=== PATIENT | female | born 1955 | race Caucasian/White ===

== ENCOUNTER 2017-02-27 14:06 | Emergency (ER) | payer OTHER ==
[~2017-02-27] VITALS: Ht 160 cm; Wt 73.0 kg
[2017-02-27 14:28] VITALS: Ht 160 cm; Wt 73.0 kg
[2017-02-27] MEDS ORDERED: SOD CHLORIDE 0.9% 1,000 ML IV STA (20:06)
--- NOTE | 2017-02-27 20:11 | ERD ---
ER Documentation Chief Complaint Date/Time DATE: 02/27/17 TIME: 20:10 Chief Complaint abd pain , headcahe x 6 months HPI 61-year-old female with a history of diabetes and hyperlipidemia, status post remote cholecystectomy ambulatory to the ED complaining of a six-month history of worsening, moderate, generalized, vague, abdominal pains localized to the epigastrium. No nausea, vomiting, diarrhea or constipation. No hematemesis, hematochezia or melanotic stools. No chest pain or palpitations per denies shortness of breath or cough. No dysuria, polyuria, hematuria or flank pain. No vaginal discharge or bleeding. No relieving or exacerbating factors. She is very concerned as she has a strong family history of cancer. She also been having mild, generalized, intermittent headaches recently but no visual changes , focal weakness or numbness. No neck or back pain. No fevers or chills. ROS All systems reviewed and are negative except as per history of present illness. Medications Home Meds Active Scripts Pantoprazole (Protonix) 40 Mg Tabec, 40 MG PO DAILY for 14 Days, TAB Prov:ROSALVA SALEH MD 02/27/17 Reported Medications Omeprazole* (Omeprazole*) Unknown Strength Capsule.dr, MG PO DAILY, #30 CAP 02/27/17 Insulin Isophan/Regular (Humulin 70/30) 100 Units/Ml Susp, 0 SC AC BREAKFAST DINNER, EA 50 UNITS QAM AND 38 UNITS QPM 02/27/17 Atorvastatin Calcium* (Atorvastatin Calcium*) Unknown Strength Tablet, MG PO QAM , #30 TAB 02/27/17 Metformin* (Glucophage*) Unknown Strength Tab, MG PO WITH LUNCH DINNER, #60 TAB 02/27/17 Allergies Allergies: Coded Allergies: No Known Allergy (Unverified , 02/27/17) PMhx/Soc Reviewed in chart. As per HPI. History of Surgery: Yes (Cholecystectomy) Anesthesia Reaction: No Hx Neurological Disorder: No Hx Respiratory Disorders: No Hx Cardiac Disorders: Yes (Hypertension) Hx Psychiatric Problems: No Hx Miscellaneous Medical Probl: Yes (Diabetes mellitus) Hx Alcohol Use: No Hx Substance Use: No Hx Tobacco Use: No FmHx Mother and sister both had hepatic cancer. No family history of stroke or coronary artery disease Physical Exam Vitals Vital Signs Date Time Temp Pulse Resp B/P Pulse Ox O2 Delivery O2 Flow Rate FiO2 02/27/17 23:43 97.9 69 18 151/69 96 Room Air 02/27/17 19:52 98.4 72 18 136/65 95 Room Air 02/27/17 14:28 97.9 80 18 138/67 98 Physical Exam Const: Alert, anxious, moderate distress Head: Atraumatic Eyes: Normal Conjunctiva ENT: Normal External Ears, Nose and Mouth. Neck: Full range of motion. Nontender Resp: Breath sounds are equal and clear to auscultation bilaterally Cardio: Regular rate and rhythm, no murmurs Abd: Soft, nondistended. Epigastric tenderness but no rebound or guarding. Normal bowel sounds. No masses or abnormal pulsations. Skin: No petechiae or rashes Back: No midline or flank tenderness Ext: No cyanosis, or edema Neur: Awake and alert. No focal deficit observed Psych: Patient appears anxious but not depressed. Result Diagram: 02/27/17201502/27/172015 Results 24 hrs Laboratory Tests Test 02/27/17 20:16 02/27/17 23:22 White Blood Count 10.810^3/ul Red Blood Count 4.3510^6/ul Hemoglobin 13.7g/dl Hematocrit 40.4% Mean Corpuscular Volume 92.9fl Mean Corpuscular Hemoglobin 31.5pg Mean Corpuscular Hemoglobin Concent 33.9g/dl Red Cell Distribution Width 13.7% Platelet Count 19648^3/UL Mean Platelet Volume 9.5fl Neutrophils % 60.1% Lymphocytes % 27.8% Monocytes % 6.5% Eosinophils % 4.7% Basophils % 0.6% Nucleated Red Blood Cells % 0.0/100WBC Neutrophils # 6.510^3/ul Lymphocytes # 3.010^3/ul Monocytes # 0.710^3/ul Eosinophils # 0.510^3/ul Basophils # 0.110^3/ul Nucleated Red Blood Cells # 0.010^3/ul Urine Color LT. YELLOW Urine Clarity CLEAR Urine pH 5.0 Urine Specific [place] 1.025 Urine Ketones NEGATIVE Urine Nitrite NEGATIVE Urine Bilirubin NEGATIVE Urine Urobilinogen 0.2 E.U./dL Urine Leukocyte Esterase TRACE Urine Microscopic RBC 0-2/HPF Urine Microscopic WBC 0-2/HPF Urine Squamous Epithelial Cells FEW Urine Hemoglobin NEGATIVE Urine Glucose 0.5%% Urine Total Protein NEGATIVE Sodium Level 136mmol/L Potassium Level 4.6mmol/L Chloride Level 97mmol/L Carbon Dioxide Level 26mmol/L Anion Gap 18 Blood Urea Nitrogen 16mg/dl Creatinine 0.77mg/dl Glucose Level 355mg/dl Calcium Level 9.5mg/dl Total Bilirubin 0.3mg/dl Direct Bilirubin 0.00mg/dl Indirect Bilirubin 0.3mg/dl Aspartate Amino Transf (AST/SGOT) 58IU/L Alanine Aminotransferase (ALT/SGPT) 63IU/L Alkaline Phosphatase 122IU/L Total Protein 7.6g/dl Albumin 4.1g/dl Globulin 3.50g/dl Albumin/Globulin Ratio 1.17 Lipase 122U/L Bedside Glucose 223mg/dL Current Medications Medications (Trade) Dose Ordered Sig/Alis Route PRN Reason Start Time Stop Time Status Last Admin Dose Admin Sodium Chloride (NS) 1,000 ml @ 1,000 mls/hr Q1H STAT IV 02/27/17 20:06 02/27/17 21:05 DC 02/27/17 20:19 Pantoprazole (Protonix Iv) 40 mg ONCE ONCE IV 02/27/17 20:30 02/27/17 20:31 DC 02/27/17 20:19 EKG: Sinus rhythm. Ventricular rate: 68. Normal VA and QRS. Q waves in leads III and aVF with poor R-wave progression in anterior leads. No acute ST segment elevation or depression. No ectopy. EP interpretation: Abnormal ECG. IMAGING: PROCEDURE: CT Abdomen and pelvis with contrast. CLINICAL INDICATION: Abdominal pain. TECHNIQUE: CT scan of the abdomen and pelvis with contrast was performed on a multi-detector high-resolution CT scanner. The patient was scanned following the uncomplicated administration of 100 cc of Omnipaque 300 intravenous contrast. Coronal and sagittal reformatted images were obtained from the axial source images. Images were reviewed on a high-resolution PACS workstation. One or more of the following dose reduction techniques were used: - Automated exposure control. - Adjustment of the mA and/or kV according to patient size. - Use of iterative reconstruction technique. Exam CTD/vol = 13.36 mGy. Total exam DLP = 783.01 mGy-cm. COMPARISON: None. FINDINGS: Evaluation of the lung bases demonstrates mild bibasilar atelectasis. Abdomen: The liver is normal in size with no focal mass identified. The patient status post cholecystectomy with mild pneumobilia present. The spleen, pancreas and bilateral adrenal glands are within normal limits. Bilateral kidneys are normal in size with symmetric enhancement. There is no focal mass, hydronephrosis or hydroureter. There is no retroperitoneal adenopathy. The abdominal aorta is of normal caliber with scattered atherosclerotic calcifications. There is no abnormal bowel wall thickening or distension. There is no bowel obstruction or free air. A normal appendix is identified. There is no diverticulosis or diverticulitis. There is no ascites. Pelvis: The bladder is unremarkable. The uterus and adnexa are within normal limits. There is no significant pelvic adenopathy or free fluid. Evaluation of the osseous structures demonstrates no suspicious lytic or blastic lesion. IMPRESSION: Status post cholecystectomy with mild pneumobilia. Vascular calcifications reflective of atherosclerosis. Mild bibasilar atelectasis. Otherwise no acute abnormality identified within the abdomen and pelvis. .Alfonso Bedolla MD, MD Date Time Electronically viewed and signed by .Alfonso Bedolla MD, MD on 02/27/2017 22:12 .T/ Procedures/MDM DOCUMENTS REVIEWED: ED nurse, no prior records available. REEXAMINATION/REEVALUATION: Time: 23:20. Abdomen soft nontender. Accu-Chek 223 mg/dL. Abdomen soft nontender. No rebound or guarding. MEDICAL DECISION MAKIN-year-old female with a history of diabetes and hyperlipidemia, status post remote cholecystectomy ambulatory to the ED complaining of a six-month history of worsening, moderate, generalized, vague, abdominal pains localized to the epigastrium. CT scan of the abdomen is unremarkable for acute pathology. Possible gastritis/GERD. Symptoms are consistent with mesenteric ischemia. An occult malignancy has not ruled out and patient will need further GI consultation and endoscopy. Abdominal exam is benign without significant tenderness, rebound, guarding or other signs of peritonitis. No ischemic EKG changes, elevated troponin or other signs of acute coronary syndrome. Diabetic hyperglycemia without evidence of DKA or HONK. In the absence of signs of serious disease she is stable for discharge with precautionary instructions, PPIs and outpatient follow-up was counseled. Counseled patient regarding diagnostic workup, diagnosis and need for followup. Understands definitive diagnosis not established, mandatory followup and to return to ED if symptoms recur, worsen or any other concerns. OBSERVATION NOTE: At 19:00 the patient was entered into observation status to establish the need for admission. During this time the patient was treated for abdominal pain. Additionally, extensive evaluation including, CBC, Chemistry, Urinalysis, EKG, and CAT scan of the abdomen and pelvis were preformed and results interpreted as above. Vitals signs were monitored and repeat exams were performed every 15-20 minutes. At 23:20 the patient was reexamined; VSS, afebrile, pain resolved and tolerating PO's. Based on these findings the patient was discharged from observation period as it was determined that the patient was improved and met criteria for discharge. Departure Diagnosis: Primary Impression: Abdominal pain of unknown etiology Additional Impression: Hyperglycemia due to type 2 diabetes mellitus Diabetes mellitus termite control servicer insulin use: with termite control servicer use Qualified Code: E11.65 - Type 2 diabetes mellitus with hyperglycemia, with long-term current use of insulin Condition: Stable (Improved) ROSALVA SALEH MD February 27, 2017 20:11
[2017-02-27 20:28] LABS: ADD SCAN DIFF NO
[2017-02-27 20:30] LABS: BASOPHIL # 0.1 10^3/ul (0.0-0.1); BASOPHILS % 0.6 % (0.0-2.0); EOSINOPHILS # 0.5 10^3/ul (0.0-0.5); EOSINOPHILS % 4.7 % (0.0-7.0); HEMATOCRIT 40.4 % (37.0-47.0); HEMOGLOBIN 13.7 g/dl (12.0-16.0); LYMPHOCYTES % 27.8 % (15.0-51.0); MEAN CORPUSCULAR HEMOGLOBIN 31.5 pg (29.0-33.0); MEAN CORPUSCULAR HGB CONC 33.9 g/dl (32.0-37.0); MEAN CORPUSCULAR VOLUME 92.9 fl (82.0-101.0); MEAN PLATELET VOLUME 9.5 fl (7.4-10.4); MONOCYTE # 0.7 10^3/ul (0.3-0.9); MONOCYTES % 6.5 % (0.0-11.0); NEUTROPHIL # 6.5 10^3/ul (1.6-7.5); NEUTROPHILS % 60.1 % (39.0-77.0); PLATELET COUNT 313 10^3/UL (140-415); RED BLOOD COUNT 4.35 10^6/ul (4.20-5.40); RED CELL DISTRIBUTION WIDTH 13.7 % (11.5-14.5); WHITE BLOOD COUNT 10.8 10^3/ul (4.8-10.8)
[2017-02-27] MEDS ORDERED: PANTOPRAZOLE 40 MG INJ IV ONE (20:30)
[2017-02-27 20:31] LABS: ADD UMIC YES; URINE BILIRUBIN (Dip) NEGATIVE (NEGATIVE); URINE BLOOD (Dip) NEGATIVE (NEGATIVE); URINE COLOR LT. YELLOW (YELLOW); URINE KETONES (Dip) NEGATIVE (NEGATIVE); URINE LEUKOCYTE ESTERASE (Dip) TRACE (NEGATIVE); URINE NITRITE (Dip) NEGATIVE (NEGATIVE); URINE TOTAL PROTEIN (Dip) NEGATIVE (NEGATIVE); URINE UROBILINOGEN (Dip) 0.2 E.U./dL (0.1-1.0)
[2017-02-27 20:43] LABS: ALBUMIN 4.1 g/dl (3.3-4.9)
[2017-02-27 20:44] LABS: POTASSIUM 4.6 mmol/L (3.5-5.1)
[2017-02-27 20:46] LABS: BILIRUBIN,INDIRECT 0.3 mg/dl (0-1.1); BILIRUBIN,TOTAL 0.3 mg/dl (0.2-1.3); CREATININE 0.77 mg/dl (0.44-1.00)
[2017-02-27 20:47] LABS: ALBUMIN/GLOBULIN RATIO 1.17; CALCIUM 9.5 mg/dl (8.4-10.2); TOTAL PROTEIN 7.6 g/dl (6.1-8.1)
[2017-02-27] MEDS ORDERED: METF500T4 PO (20:56)
[2017-02-27] MEDS ORDERED: ATOR20TA38 PO (20:57)
[2017-02-27] MEDS ORDERED: NOVO7030 SC (20:59)
[2017-02-27] MEDS ORDERED: OMEP20CA16 PO (21:00)
[2017-02-27 21:15] LABS: SQUAMOUS EPITHELIAL CELL,UR FEW; URINE RBCS 0-2 /HPF (0)
[2017-02-27] MEDS ORDERED: IOHEXOL 300MG/ML 150 ML BTL ONE (21:28)
[2017-02-27] MEDS ORDERED: SOD CHLORIDE 0.9% 100 ML ONE (21:28)
--- NOTE | 2017-02-27 22:12 | RADRPT ---
PROCEDURE: CT Abdomen and pelvis with contrast. CLINICAL INDICATION: Abdominal pain. TECHNIQUE: CT scan of the abdomen and pelvis with contrast was performed on a multi-detector high -resolution CT scanner. The patient was scanned following the uncomplicated administration of 100 c c of Omnipaque 300 intravenous contrast. Coronal and sagittal reformatted images were obtained from the axial source images. Images were reviewed on a high-resolution PACS workstation. One or more of the following dose reduction techniques were used: - Automated exposure control. - Adjustment of the mA and/or kV according to patient size. - Use of iterative reconstruction technique. Exam CTD/vol = 13.36 mGy. Total exam DLP = 783.01 mGy-cm. COMPARISON: None. FINDINGS: Evaluation of the lung bases demonstrates mild bibasilar atelectasis. Abdomen: The liver is normal in size with no focal mass identified. The patient status post cholec ystectomy with mild pneumobilia present. The spleen, pancreas and bilateral adrenal glands are with in normal limits. Bilateral kidneys are normal in size with symmetric enhancement. There is no foc al mass, hydronephrosis or hydroureter. There is no retroperitoneal adenopathy. The abdominal aort a is of normal caliber with scattered atherosclerotic calcifications. There is no abnormal bowel wall thickening or distension. There is no bowel obstruction or free air . A normal appendix is identified. There is no diverticulosis or diverticulitis. There is no asci coty. Pelvis: The bladder is unremarkable. The uterus and adnexa are within normal limits. There is no significant pelvic adenopathy or free fluid. Evaluation of the osseous structures demonstrates no suspicious lytic or blastic lesion. IMPRESSION: Status post cholecystectomy with mild pneumobilia. Vascular calcifications reflective of atherosclerosis. Mild bibasilar atelectasis. Otherwise no acute abnormality identified within the abdomen and pelvis. .Alfonso Bedolla MD, MD Date Time Electronically viewed and signed by .Alfonso Bedolla MD, MD on 02/27/2017 22:12 .T/
[2017-02-27] MEDS ORDERED: PANT40TA4 PO (23:27)
[2017-02-27 23:43] VITALS: BP 151/69; PULSE 69; RESP 18; TEMP 97.9
== END 2017-02-27 23:43 | disposition home or self-care (01) ==
LOC: E/R 14:06
DX: R10.13 Epigastric pain (principal); E11.65 Type 2 diabetes mellitus with hyperglycemia; I10 Essential (primary) hypertension; Z79.4 Long term (current) use of insulin; Z79.84 Long term (current) use of oral hypoglycemic drugs; Z85.05 Personal history of malignant neoplasm of liver
CPT/HCPCS: 36415; 74177; 80053; 81001; 82962; 83690; 85025; 93005; 96374; C9113; J7030; Q9967; Z7502; Z7610; 81003

== ENCOUNTER 2017-10-29 07:54 | Emergency (ER) | END 2017-10-29 08:22 | disposition home or self-care (01) ==